=== PATIENT | female | born 1990 | race Caucasian/White ===

== ENCOUNTER 2017-01-25 20:08 | Emergency (ER) | payer OTHER ==
[2017-01-25 20:16] VITALS: RESP 18
[2017-01-25] MEDS ORDERED: SODIUM CHLORIDE 0.9% 1,000 ML IV STA (20:29)
[2017-01-25 20:53] LABS: Basophils % (A) 0 %; CH 31.2; CHCM 35.2; Eosinophils # (A) 0.1 k/uL (0-0.7); Eosinophils % (A) 0 %; HCT 37.4 % (34.0-46.0); HDW 2.35; HGB 12.9 gm/dL (11.4-16.0); Luc # (Auto) 0.17; Luc % (Auto) 1; Lymphocytes # (A) 2.5 k/uL (1.0-4.8); Lymphocytes % (A) 17 %; MCH 30.6 pg (25.0-35.0); MCHC 34.4 g/dL (31.0-37.0); MCV 89.1 fL (80.0-100.0); Mean Platelet Volume 7.1; Monocytes # (A) 0.5 k/uL (0-1.0); Monocytes % (A) 3 %; Neutrophils # (A) 11.9 k/uL (1.3-7.7); Neutrophils % (A) 78 %; RDW 13.3 % (11.5-15.5); WBC 15.2 k/uL (3.8-10.6); WBC (Perox) 15.37
[2017-01-25 21:00] LABS: Appearance,Urine Cloudy (Clear); Bacteria,Urine Rare /hpf; Bilirubin,Urine Negative (Negative); Glucose,Urine (UA) Negative (Negative); Ketones,Urine Negative (Negative); Leukocyte Esterase,Urine Negative (Negative); Mucus,Urine Rare /hpf; Nitrite,Urine Negative (Negative); PH, Urine 5.5 (5.0-8.0); Particle Count 10351; Protein,Urine Negative (Negative); RBC,Urine 1 /hpf (0-5); Specific Gravity,Urine 1.015 (1.001-1.035); Squamous Epithelial Cell,Urine 8 /hpf (0-4); UA Billing (MACRO vs. MICRO) MICRO; Urobilinogen,Urine <2.0 mg/dL (<2.0); WBC,Urine 2 /hpf (0-5)
[2017-01-25 21:06] LABS: ALT 46 U/L (9-52); AST 23 U/L (14-36); Alkaline Phosphatase 54 U/L (38-126); Amylase 49 U/L (30-110); Anion Gap 8 mmol/L; Blood Urea Nitrogen 7 mg/dL (7-17); Carbon Dioxide 21 mmol/L (22-30); Chloride 107 mmol/L (98-107); Glucose 85 mg/dL (74-99); Non-African American GFR(MDRD) >60 (>60 ml/min/1.73 sqM); Potassium 3.7 mmol/L (3.5-5.1); Sodium 136 mmol/L (137-145); Total Bilirubin 0.2 mg/dL (0.2-1.3); Total Protein 6.7 g/dL (6.3-8.2)
--- NOTE | 2017-01-25 21:30 | US ---
EXAMINATION TYPE: US OB >= 14 wk fetus DATE OF EXAM: 01/25/2017 COMPARISON: None CLINICAL HISTORY: PainCramping x 4 days TECHNIQUE: Transabdominal (TA) GESTATIONAL AGE / DATING Physician Established: (14 weeks/3 days) EDC: 07/23/2017 Dates by LMP: (14 weeks/3 days) EDC: 07/23/2017 Dates by First Scan: This is first scan) Dates by Current Scan: 15weeks 1day EDC: 07/19/2017 SURVEY IUP: Single PLACENTA: Anterior PREVIA: No Previa MANUEL: WNL CERVICAL LENGTH (transabdominal: norm > 3.0cm): 3.1 cm (Supplemental transvaginal imaging performed to verify cervical length.) BIOMETRY PRESENTATION: Variable LIE: Transverse with head maternal right BPD: 2.8 cm 15 weeks / 0 days HC: 10.34 cm 14 weeks / 6 days AC: 8.02 cm 14 weeks / 3 days FL: 1.57 cm 14 weeks / 4 days ESTIMATED WEIGHT IN GRAMS: 100.82 grams ESTIMATED WEIGHT IN LBS/OZS: lbs. 4 oz. WEIGHT PERCENTAGE BASED ON ESTABLISHED DATES: 44.4% HC/AC: 1.29 Normal FL/AC: 19.54 Normal HEART RATE: 144` bpm RHYTHM: Normal IMPRESSION: The ultrasound gestational age is 15 weeks. I see no complicating process.
--- NOTE | 2017-01-25 21:39 | ED ---
Abdominal Pain HPI - General Chief Complaint: Abdominal Pain Stated Complaint: 14 weeks / abd Pain Time Seen by Provider: 01/25/17 20:21 Source: patient, RN notes reviewed Mode of arrival: ambulatory Limitations: no limitations - History of Present Illness Initial Comments: 26-year-old female presents emergency Department chief complaint abdominal pain and . Patient states it lasted for days she's had some lower abdominal pain. Denies any vaginal bleeding or vaginal discharge. 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 Patient did have IUP on ultrasound. Patient denies any fever, chills, nausea, vomiting diarrhea constipation. Patient denies any dysuria or hematuria. She states that pain is usually worse when she is at work and goes away when she rests. - Related Data Home Medications Medication Instructions Recorded Confirmed No Known Home Medications [No 03/04/16 03/04/16 Known Home Medications] Allergies Allergy/AdvReac Type Severity Reaction Status Date / Time No Known Allergies Allergy Verified 01/25/17 20:16 Review of Systems ROS Statement: Those systems with pertinent positive or pertinent negative responses have been documented in the HPI. ROS Other: All systems not noted in ROS Statement are negative. Past Medical History Past Medical History: No Reported History History of Any Multi-Drug Resistant Organisms: None Reported Past Surgical History: Adenoidectomy, Tonsillectomy Past Psychological History: Anxiety Smoking Status: Current every day smoker Past Alcohol Use History: Heavy Past Drug Use History: Marijuana, Prescription Drug Abuse General Exam Limitations: no limitations General appearance: alert, in no apparent distress Neck exam: Present: normal inspection. Absent: tenderness, meningismus, lymphadenopathy Respiratory exam: Present: normal lung sounds bilaterally. Absent: respiratory distress, wheezes, rales, rhonchi, stridor Cardiovascular Exam: Present: regular rate, normal rhythm, normal heart sounds. Absent: systolic murmur, diastolic murmur, rubs, gallop, clicks GI/Abdominal exam: Present: soft, tenderness (mild tenderness along the lower abdomen), normal bowel sounds. Absent: distended, guarding, rebound, rigid Back exam: Absent: CVA tenderness (R), CVA tenderness (L) Course Vital Signs 01/25/17 20:12 Temperature 99.4 F Pulse Rate 91 Respiratory 18 Rate Blood Pressure 131/70 O2 Sat by Pulse 99 Oximetry Medical Decision Making - Medical Decision Making 26 show female presented for lower abdominal pain . Patient ultrasound , lab work essentially unremarkable. Patient's ultrasound does not reveal any acute comp in process. Patient's pain may related to round ligament pain issues and second trimester 15 weeks . Patient's pain improved with rest. Patient does not want to pelvic exam will follow-up with Dr. Joseph her OB /FRAME ASSEMBLER - Lab Data Result diagrams: 01/25/17 20:25 01/25/17 20:25 Lab Results 01/25/17 01/25/17 01/25/17 Range/Units 20:25 20:25 20:25 WBC 15.2 H (3.8-10.6) k/uL RBC 4.20 (3.80-5.40) m/uL Hgb 12.9 (11.4-16.0) gm/dL Hct 37.4 (34.0-46.0) % MCV 89.1 (80.0-100.0) fL MCH 30.6 (25.0-35.0) pg MCHC 34.4 (31.0-37.0) g/dL RDW 13.3 (11.5-15.5) % Plt Count 331 (150-450) k/uL Neutrophils % 78 % Lymphocytes % 17 % Monocytes % 3 % Eosinophils % 0 % Basophils % 0 % Neutrophils # 11.9 H (1.3-7.7) k/uL Lymphocytes # 2.5 (1.0-4.8) k/uL Monocytes # 0.5 (0-1.0) k/uL Eosinophils # 0.1 (0-0.7) k/uL Basophils # 0.0 (0-0.2) k/uL Sodium 136 L (137-145) mmol/L Potassium 3.7 (3.5-5.1) mmol/L Chloride 107 (98-107) mmol/L Carbon Dioxide 21 L (22-30) mmol/L Anion Gap 8 mmol/L BUN 7 (7-17) mg/dL Creatinine 0.47 L (0.52-1.04) mg/dL Est GFR (MDRD) Af Amer >60 (>60 ml/min/1.73 sqM) Est GFR (MDRD) Non-Af >60 (>60 ml/min/1.73 sqM) Glucose 85 (74-99) mg/dL Calcium 9.0 (8.4-10.2) mg/dL Total Bilirubin 0.2 (0.2-1.3) mg/dL AST 23 (14-36) U/L ALT 46 (9-52) U/L Alkaline Phosphatase 54 (38-126) U/L Total Protein 6.7 (6.3-8.2) g/dL Albumin 3.8 (3.5-5.0) g/dL Amylase 49 (30-110) U/L Lipase 188 (23-300) U/L Urine Color Yellow Urine Appearance Cloudy H (Clear) Urine pH 5.5 (5.0-8.0) Ur Specific [place] 1.015 (1.001-1.035) Urine Protein Negative (Negative) Urine Glucose (UA) Negative (Negative) Urine Ketones Negative (Negative) Urine Blood Negative (Negative) Urine Nitrite Negative (Negative) Urine Bilirubin Negative (Negative) Urine Urobilinogen <2.0 (<2.0) mg/dL Ur Leukocyte Esterase Negative (Negative) Urine RBC 1 (0-5) /hpf Urine WBC 2 (0-5) /hpf Ur Squamous Epith Cells 8 H (0-4) /hpf Urine Bacteria Rare H (None) /hpf Urine Mucus Rare H (None) /hpf Disposition Clinical Impression: Abdominal pain during Disposition: HOME SELF-CARE Condition: Stable Instructions: Abdominal Pain in (ED) Additional Instructions: Please return to the Emergency Department if symptoms worsen or any other concerns. Referrals: None,Stated [Primary Care Provider] - 1-2 days Janie Joseph DO [Doctor of Osteopathic Medicine] - 1-2 days Time of Disposition: 21:39
[2017-01-25 21:46] VITALS: BP 109/56; PULSE 80; TEMP 97.6
== END 2017-01-25 21:46 | disposition home or self-care (01) ==
LOC: EC 20:08
DX: O99.89 Other specified diseases and conditions complicating pregnancy, childbirth and the puerperium (principal); R10.30 Lower abdominal pain, unspecified; O99.332 Smoking (tobacco) complicating pregnancy, second trimester; F17.200 Nicotine dependence, unspecified, uncomplicated; Z3A.15 15 weeks gestation of pregnancy
CPT/HCPCS: 36415; 76805; 80053; 81001; 82150; 83690; 85025; 96360; 99284

== ENCOUNTER 2017-07-20 22:27 | Outpatient (CLI) | payer OTHER ==
[2017-07-21 00:24] VITALS: BP 117/73; PULSE 96; RESP 16; TEMP 97.4
--- NOTE | 2017-07-21 10:47 | P.MSEPDOC ---
Presenting Problems - Arrival Data Date of Arrival on Unit: 07/20/17 Time of Arrival on Unit: 22:25 Mode of Transport: Ambulatory - Complaint OB-Reason for Admission/Chief Complaint: Possible Onset of Labor Comment: Loss of mucous plug Medical History - Information : 3 Para: 0 Term: 0 : 0 Abortions: Spontaneous or Elective: 0 Number of Living Children: 0 - Gestational Age Gestational Age by SIERRA (wks/days): 39 Weeks and 5 Days - History Complications: Hx. Substance Abuse Comment: marijuana use Review of Systems - Review of Systems Constitutional: No problems Breast: No problems ENT: No problems Cardiovascular: No problems Respiratory: No problems Gastrointestinal: No problems Genitourinary: No problems Musculoskeletal: No problems Neurological: No problems Skin: No problems Vital Signs - Temperature Temperature: 97.4 F Temperature Source: Temporal Artery Scan - Pulse Right Sitting Brachial Pulse Rate: 96 Pulse Assessment Method: Automatic Cuff - Respirations Respiratory Rate: 16 Oxygen Delivery Method: Room Air O2 Sat by Pulse Oximetry: 99 - Blood Pressure Right Arm Supine Blood Pressure: 117/73 Blood Pressure Mean: 87 Blood Pressure Source: Automatic Cuff Medical Screen Scoring (Pre) - Cervical Exam Dilation: 1-3 cm = 1 Effacement: More than 50% = 2 Membranes: Intact - Uterine Contractions Frequency: > 5 minutes apart = 1 Duration: N/A Intensity: N/A - Maternal Vital Signs Maternal Temperature: N/A Maternal Blood Pressure: N/A Signs of Preeclampsia: N/A - Pain Assessment Pain Location and Character: Back Pain Scale Used: Numeric (1 - 10) Pain Intensity: 4 Pain Management Goal: 4 Pain Description: *Acute, Cramping Pain Radiation Location: back Pain Frequency: Intermittent Pain Duration: 3 Pain Duration Units: Hours Pain Behavior: Fidgeting Effects of Pain: slow moving Pain Aggravating Factors: Contractions - Maternal Trauma Maternal Trauma: N/A - Assessment Baseline FHR: 135 Heart Rate - NICHD Category: Category I (Normal) = 0 NST: Reactive Position: N/A Station: N/A - Total Score Total Score (Pre): 4 - Level of Risk Level of Risk: Low (0-5) Physician Notification (Pre) - Physician Notified Physician Notified Date: 07/21/17 Physician Notified Time: 00:00 Physician/Practitioner Notifed:: Darshan Spoke With: Darshan New Order Received: Yes - Notification Comment Comment: May discharge to home with instructions Disposition - Disposition OB Disposition: Discharge to home Transferred to:: Home Discharge Date: 07/21/17 Discharge Time: 00:05 I agree with the RN Medical Screening Exam: Yes Risk & Benefit of care provided described in d/c instruction: Yes Diagnosis: FALSE LABOR, UNSPECIFIED
== END 2017-07-21 00:05 | disposition home or self-care (01) ==
LOC: FBPOP 22:27
PROVIDERS: ATTEND Obstetrics & Gynecology
DX: O47.9 False labor, unspecified (principal); Z3A.39 39 weeks gestation of pregnancy
CPT/HCPCS: 59025; G0463; 99213

== ENCOUNTER 2017-07-30 04:59 | Inpatient (IN) | payer OTHER ==
[2017-07-30] MEDS: LACTATED RINGERS 1,000 ML IV SCH ×3 (05:30→22:20)
[2017-07-30 05:46] LABS: Basophils # (A) 0.1 k/uL (0-0.2); Basophils % (A) 0 %; Eosinophils # (A) 0.2 k/uL (0-0.7); Eosinophils % (A) 1 %; HCT 39.6 % (34.0-46.0); HGB 13.1 gm/dL (11.4-16.0); Lymphocytes # (A) 2.2 k/uL (1.0-4.8); Lymphocytes % (A) 13 %; MCH 29.2 pg (25.0-35.0); MCHC 33.1 g/dL (31.0-37.0); MCV 88.2 fL (80.0-100.0); Mean Platelet Volume 7.1; Monocytes # (A) 0.6 k/uL (0-1.0); Monocytes % (A) 4 %; Neutrophils # (A) 13.4 k/uL (1.3-7.7); Neutrophils % (A) 80 %; Platelet Count 368 k/uL (150-450); RBC 4.49 m/uL (3.80-5.40); RDW 13.3 % (11.5-15.5); WBC 16.7 k/uL (3.8-10.6)
[2017-07-30 05:51] VITALS: BMI 42.0
[2017-07-30] MEDS ORDERED: TERBUTALINE 1 MG/ML VIAL SQ PRN (06:08)
[2017-07-30] MEDS ORDERED: OXYTOCIN 10 UNIT/ML 1 ML VIAL IM PRN (06:08)
[2017-07-30] MEDS ORDERED: METHYLERGONOVINE 0.2 MG/ML 1 ML AMP IM PRN (06:08)
[2017-07-30] MEDS ORDERED: LIDOCAINE 1% (PF) 10 MG/ML (30 ML SDV) SQ PRN (06:08)
[2017-07-30] MEDS ORDERED: CARBOPROST TROMETHAMINE 250 MCG/ML 1 ML AMP IM PRN (06:08)
[2017-07-30] MEDS ORDERED: OXYTOCIN 20 UNITS/1000 ML NS 1,000 ML IV SCH (06:15)
[2017-07-30] MEDS ORDERED: fentaNYL (PF) 50 MCG/ML 5 ML AMP ONE (06:45)
[2017-07-30] MEDS ORDERED: BUPIVACAINE (PF) 0.25% 30 ML VIAL ONE (06:45)
[2017-07-30] MEDS ORDERED: SODIUM CHLORIDE 0.9% 100 ML BAG ONE (06:45)
--- NOTE | 2017-07-30 07:23 | P.HPOB ---
History of Present Illness H&P Date: 07/30/17 This is a 27-year-old white female 1 para 0 EDC to 1218 at 41 weeks gestation. Patient presents this morning with strong regular uterine contractions, fetus is been active throughout the . She denies fluid leakage or vaginal bleeding. Obstetric history significant for blood type A+, rubella status immune. Urine culture, hepatitis B surface antigen, HIV testing, VDRL testing, gonorrhea and chlamydia cultures, group B strep cultures all negative. One-hour Glucola 124. Urine drug screen positive for THC. Past medical history is essentially unremarkable. Past surgical history tonsillectomy and adenoidectomy 2011. Current medications vitamins. ALLERGIES none known. Social history patient smokes tobacco, currently less than 1 pack per day. She is single, father of the baby is involved. On exam this is a pleasant female, 5 foot 2 inches, 230 pounds, blood pressure 132/87 on admission, otherwise vital signs stable. The general physical exam is within normal limits. The cervix is 3-4 cm dilated, 80% effaced, -1 station , vertex presentation. Artificial amniorrhexis reveals very dark meconium- stained fluid. heart tones are in the 140s with good overall variability. Extremities reveal no edema. Impression: 41 week intrauterine , dark meconium-stained fluid, early active labor. Plan: Oxytocin augmentation per hospital protocol. Close maternal and surveillance. Epidural has been placed per her request. Anticipate normal spontaneous vaginal delivery. Review of Systems Negative except as in HPI Past Medical History Past Medical History: No Reported History History of Any Multi-Drug Resistant Organisms: None Reported Past Surgical History: Adenoidectomy, Tonsillectomy Past Anesthesia/Blood Transfusion Reactions: No Reported Reaction Past Psychological History: Anxiety Smoking Status: Current every day smoker Past Alcohol Use History: Heavy Past Drug Use History: Marijuana, Prescription Drug Abuse - Past Family History Mother Family Medical History: No Reported History Medications and Allergies Home Medications Medication Instructions Recorded Confirmed Type Pnv 11/Iron Fum/Folic Acid/Om3 1 each PO DAILY 07/20/17 07/30/17 History [Virt-Gumaro Dha Softgel] Allergies Allergy/AdvReac Type Severity Reaction Status Date / Time No Known Allergies Allergy Verified 07/30/17 05:09 Exam - Vital Signs Vital signs: Vital Signs Temp Pulse Resp BP Pulse Ox 07/30/17 05:15 96.7 F L 88 16 132/87 99 07/30/17 05:09 96.7 F L 88 16 132/87 99 Intake and Output 07/29/17 07/30/17 07/30/17 22:59 06:59 14:59 Intake Total 1000 Balance 1000 Intake: IV 1000 Lactated Ringers 1,000 ml 1000 @ 125 mls/hr IV .Q8H KAMARI Rx#:[id number] Other: Weight 104.326 kg See dictation please Results Result Diagrams: 07/30/17 05:36 Abnormal Lab Results - Last 24 Hours (Table) 07/30/17 Range/Units 05:36 WBC 16.7 H (3.8-10.6) k/uL Neutrophils # 13.4 H (1.3-7.7) k/uL Assessment and Plan Plan: Oxytocin augmentation per hospital protocol. Continue close maternal and surveillance. Anticipate normal spontaneous vaginal delivery. Time with Patient: Less than 30
[2017-07-30 11:16] LABS: Amphetamine Screen,Urine Not Detected (NotDetected); Barbiturate Screen,Urine Not Detected (NotDetected); Benzodiazepines Screen,Urine Not Detected (NotDetected); Cocaine Screen,Urine Not Detected (NotDetected); Methadone Screen, Urine Not Detected (NotDetected); Opiate Screen,Urine Not Detected (NotDetected); Oxycodone Screen, Urine Not Detected (NotDetected); Phencyclidine Screen,Urine Not Detected (NotDetected); Tricyclic Antidepressant,Urine Not Detected (NotDetected); Urn Cannabinoid Scrn Not Detected (NotDetected)
[2017-07-30] MEDS ORDERED: HYDROCORTISONE 2.5% RECTAL CREAM 30 GM TUBE RECTAL PRN (16:48)
[2017-07-30] MEDS ORDERED: ZOLPIDEM 5 MG TAB PO PRN (16:48)
[2017-07-30] MEDS ORDERED: ACETAMINOPHEN TAB 325 MG TAB PO PRN (16:48)
[2017-07-30] MEDS ORDERED: LANOLIN CREAM 5 GM TUBE TOPICAL PRN (16:48)
[2017-07-30] MEDS ORDERED: diphenhydrAMINE 50 MG CAP PO PRN (16:48)
[2017-07-30] MEDS ORDERED: diphenhydrAMINE 50 MG/ML 1 ML VIAL IVP PRN ×2 (16:48)
[2017-07-30] MEDS ORDERED: WITCH HAZEL 1 EACH MED..PAD TOPICAL PRN (16:48)
[2017-07-30] MEDS ORDERED: BENZOCAINE/MENTHOL SPRAY 1 GM/SPRAY AEROSOL TOPICAL PRN (16:48)
[2017-07-30] MEDS ORDERED: diphenhydrAMINE ELIXIR 25 MG/10 ML CUP PO PRN (16:48)
[2017-07-30] MEDS ORDERED: Acetaminophen-Codeine 300-30mg TAB PO PRN (16:48)
[2017-07-30] MEDS ORDERED: SIMETHICONE 80 MG CHEWABLE PO PRN (16:48)
[2017-07-30] MEDS ORDERED: diphenhydrAMINE 25 MG CAP PO PRN (16:48)
--- NOTE | 2017-07-30 16:48 | P.PROBDLV ---
Vaginal Delivery Note - . Vaginal Delivery Note: This is a 27-year-old white female 1 para 0 EDC 07/23/2017 at 41 weeks gestation. Patient presented with regular uterine contractions from home, in early labor. was remarkable for group B strep cultures negative, blood type A positive, rubella status immune. THC was noted early in and urine drug screen. Please see dictated history and physical for details. Artificial amniorrhexis revealed very darkly meconium stained urine. Internal scalp lead was applied. heart tones were reassuring throughout the first and second stages of labor. Oxytocin was started and titrated per hospital protocol. Patient became uncomfortable and requested epidural, this was placed without difficulty per the anesthesia staff. She became completely dilated at 1340 hrs. She began the second stage of labor at that time. Pushing was adequate, patient pushed for almost 3 hours prior to . The perineal body was prepped and draped in usual sterile fashion. Perineal tissues were quite edematous, and a fair amount of Was noted. 's head delivered occiput anterior and restituted accordingly. There was a tight nuchal cord 1 that was reduced. The oropharynx, nasopharynx, and external nares were all bulb suctioned on the perineal body. Patient was officially delivered of a liveborn female at 1621 hrs. Umbilical cord was doubly clamped and ligated, she was handed to waiting nurses for evaluation where scores of 7 and 9 at one and 5 minutes respectively are given. The placenta delivered spontaneously, it was inspected and noted to be very deeply meconium-stained with trivascular cord at 1623 hrs. At this time the uterus was massaged. Inspection of the cervix, vagina, perineum, periurethral, perirectal areas revealed a small second-degree perineal laceration. This was repaired in the usual fashion using 3-0 Vicryl suture. Rectal examination was performed and rectal mucosa was noted to be intact and smooth. Total estimated blood loss 350 mL's. Infant's weight 7 lbs. 7 oz. or 3380 g. The patient and her family are allowed to begin the bonding experience in the LDR.
[2017-07-30] MEDS: IBUPROFEN 600 MG TAB PO PRN (18:04)
[2017-07-30] MEDS: SENNOSIDES-DOCUSATE SODIUM 1 EACH TAB PO SCH (19:29)
[2017-07-31] MEDS: SENNOSIDES-DOCUSATE SODIUM 1 EACH TAB PO SCH (07:55)
[2017-07-31] MEDS: IBUPROFEN 600 MG TAB PO PRN ×2 (07:58→17:48)
--- NOTE | 2017-07-31 09:11 | P.DS ---
Providers Date of admission: 07/30/17 05:13 Expected date of discharge: 07/31/17 Attending physician: Janie Joseph Primary care physician: Stated None Hospital Course: This is a 27-year-old 1 para 0 at 41-0/7 weeks that presented to labor and delivery in active labor. Patient progressed through labor and had a normal spontaneous vaginal delivery of a viable female . Her course has been uneventful. She is ambulating and voiding without difficulty. She is breast-feeding without issue. She is tolerating regular diet without nausea or vomiting. She states her lochia is moderate at this time. Mood is noted to be good today Patient Condition at Discharge: Good Plan - Discharge Summary Discharge Rx Participant: No New Discharge Prescriptions: No Action Pnv 11/Iron Fum/Folic Acid/Om3 [Virt-Gumaro Dha Softgel] 1 each PO DAILY Discharge Medication List Pnv 11/Iron Fum/Folic Acid/Om3 [Virt-Gumaro Dha Softgel] 1 each PO DAILY 07/20/17 [History] Follow up Appointment(s)/Referral(s): Janie Joseph DO [Doctor of Osteopathic Medicine] - 1 Week Patient Instructions/Handouts: Vaginal Delivery (DC), Your Baby ( DC)
[2017-08-01] MEDS: SENNOSIDES-DOCUSATE SODIUM 1 EACH TAB PO SCH ×2 (05:37→08:29)
--- NOTE | 2017-08-01 08:13 | P.PN ---
Subjective Progress Note Date: 08/01/17 Principal diagnosis: Postoperative day #2 status post normal spontaneous vaginal delivery Patient is doing well on day #2. Discharge yesterday was held secondary to infant issues. Baby is now doing well and will most likely be discharged home today. Patient states she is involuting and voiding without difficulty. Her pain is well-controlled. Her lochia is moderate, and she is tolerating a regular diet without nausea or vomiting. She would like to go home today. Objective - Vital Signs Vital signs: Vital Signs Temp 98.3 F 08/01/17 00:00 Pulse 98 08/01/17 00:00 Resp 18 08/01/17 00:00 BP 107/68 08/01/17 00:00 Pulse Ox 99 08/01/17 00:00 Intake & Output 07/31/17 08/01/17 08/01/17 18:59 06:59 18:59 Intake Total 120 Balance 120 Intake: Oral 120 Other: Voiding Method Toilet # Voids 1 - Constitutional General appearance: Present: no acute distress - Respiratory Respiratory: bilateral: CTA - Cardiovascular Rhythm: regular - Gastrointestinal General gastrointestinal: Present: normal bowel sounds - Psychiatric Psychiatric: Present: A&O x's 3, appropriate affect - Labs CBC & Chem 7: 07/30/17 05:36 Assessment and Plan (1) Term delivered Current Visit: Yes Status: Acute Code(s): O80 - ENCOUNTER FOR FULL-TERM UNCOMPLICATED DELIVERY SNOMED Code(s): 18366222 (2) Status post normal vaginal delivery Narrative/Plan: Plan discharge home today, discharge instructions are reviewed with this patient in detail. She is to follow-up in the office with myself in 4-6 weeks or sooner should the need arise. Current Visit: Yes Status: Acute Code(s): RNY0429 - SNOMED Code(s): 715394375 Time with Patient: Less than 30
[2017-08-01] MEDS: IBUPROFEN 600 MG TAB PO PRN (08:29)
[2017-08-01 09:57] VITALS: BP 119/79; PULSE 96; RESP 16; TEMP 98
== END 2017-08-01 15:50 | disposition home or self-care (01) | DRG 775 ==
LOC: FBPOP 04:59 → 4FBP 05:13
PROVIDERS: ADMIT Obstetrics & Gynecology; ATTEND Obstetrics & Gynecology Obstetrics
PROC: 10E0XZZ Delivery of Products of Conception, External Approach (ICD-10-PCS; principal; 2017-07-30)
PROC: 0KQM0ZZ Repair Perineum Muscle, Open Approach (ICD-10-PCS; 2017-07-30)
PROC: 00HU33Z Insertion of Infusion Device into Spinal Canal, Percutaneous Approach (ICD-10-PCS; 2017-07-30)
PROC: 3E0R3NZ Introduction of Analgesics, Hypnotics, Sedatives into Spinal Canal, Percutaneous Approach (ICD-10-PCS; 2017-07-30)
PROC: 10907ZC Drainage of Amniotic Fluid, Therapeutic from Products of Conception, Via Natural or Artificial Opening (ICD-10-PCS; 2017-07-30)
DX: O48.0 Post-term pregnancy (principal); F17.200 Nicotine dependence, unspecified, uncomplicated; O70.1 Second degree perineal laceration during delivery; O77.0 Labor and delivery complicated by meconium in amniotic fluid; O99.334 Smoking (tobacco) complicating childbirth; O69.1XX0 Labor and delivery complicated by cord around neck, with compression, not applicable or unspecified; Z37.0 Single live birth; Z3A.41 41 weeks gestation of pregnancy
CPT/HCPCS: 59025; 80306; 85025; 88307; 99213

== ENCOUNTER 2021-05-16 14:31 | Emergency (ER) | payer OTHER ==
[2021-05-16 15:49] VITALS: BP 109/76; PULSE 84; RESP 20; TEMP 98
--- NOTE | 2021-05-16 16:24 | ED ---
General Adult HPI - General Chief complaint: Recheck/Abnormal Lab/Rx Stated complaint: no smell/taste/wants antibodies Time Seen by Provider: 05/16/21 15:59 Source: patient, RN notes reviewed Mode of arrival: ambulatory Limitations: no limitations - History of Present Illness Initial comments: 31-year-old female presents to the emergency room for antibody infusion. Patient states her daughter developed symptoms of COVID-19 on Sunday and tested positive. Patient states she started to develop symptoms yesterday and last night lost her sense of taste and smell. States that she is congested. Denies any significant cough. Denies shortness of breath. States she actually feels pretty good but was told she should get antibody infusion. She is unv accinated.Patient has no other complaints at this time including shortness of breath, chest pain, abdominal pain, nausea or vomiting, headache, or visual changes. - Related Data Home Medications Medication Instructions Recorded Confirmed Pnv 11/Iron Fum/Folic Acid/Om3 1 each PO DAILY 07/20/17 07/30/17 [Virt-Gumaro Dha Softgel] Allergies Allergy/AdvReac Type Severity Reaction Status Date / Time No Known Allergies Allergy Verified 05/16/21 15:47 Review of Systems ROS Statement: Those systems with pertinent positive or pertinent negative responses have been documented in the HPI. ROS Other: All systems not noted in ROS Statement are negative. Past Medical History Past Medical History: No Reported History History of Any Multi-Drug Resistant Organisms: None Reported Past Surgical History: Adenoidectomy, Tonsillectomy Past Anesthesia/Blood Transfusion Reactions: No Reported Reaction Past Psychological History: Anxiety Smoking Status: Current every day smoker Past Alcohol Use History: Heavy Past Drug Use History: Marijuana, Prescription Drug Abuse - Past Family History Mother Family Medical History: No Reported History General Exam Limitations: no limitations General appearance: alert, in no apparent distress Head exam: Present: atraumatic Eye exam: Present: normal appearance, PERRL, EOMI. Absent: scleral icterus, conjunctival injection ENT exam: Present: normal exam, mucous membranes moist Neck exam: Present: normal inspection, full ROM. Absent: tenderness Respiratory exam: Present: normal lung sounds bilaterally. Absent: respiratory distress, wheezes Cardiovascular Exam: Present: regular rate, normal rhythm, normal heart sounds GI/Abdominal exam: Present: soft, normal bowel sounds. Absent: distended, tenderness Neurological exam: Present: alert Course Vital Signs 05/16/21 15:47 Temperature 98.0 F Pulse Rate 84 Respiratory 20 Rate Blood Pressure 109/76 O2 Sat by Pulse 98 Oximetry Medical Decision Making - Medical Decision Making Vitals are stable. Patient is well appearing. Oxygenating at 98% room air. Patient did test positive for COVID-19. Patient was given antibody infusion. She was monitored for an hour after to ensure she did not develop any ALLERGIC reactions. She is currently stable for discharge home. - Lab Data Lab Results 05/16/21 Range/Units 15:53 Coronavirus (PCR) Detected A (Not Detectd) Disposition Clinical Impression: COVID-19 Disposition: HOME SELF-CARE Condition: Good Instructions (If sedation given, give patient instructions): Coronavirus Disease 2019 (COVID-19) Additional Instructions: Please follow up with your doctor in 1-2 days. Return to the ER for any worsening symptoms. Is patient prescribed a controlled substance at d/c from ED?: No Referrals: Hayder Mclain MD [Primary Care Provider] - 1-2 days Time of Disposition: 16:23
[2021-05-16] MEDS ORDERED: SOTROVIMAB (EUA) 500 MG in SODIUM CHLORIDE 0.9% 100 ML IVPB ONE (16:45)
[2021-05-16] MEDS ORDERED: SODIUM CHLORIDE 0.9% 50 ML IVPB ONE (16:45)
== END 2021-05-16 18:56 | disposition home or self-care (01) ==
LOC: EC 14:31
DX: U07.1 COVID-19 (principal); F41.9 Anxiety disorder, unspecified; F17.200 Nicotine dependence, unspecified, uncomplicated; F12.10 Cannabis abuse, uncomplicated; Z72.89 Other problems related to lifestyle
CPT/HCPCS: 87635; 99283; Q0247